=== PATIENT | male | born 1975 | race Caucasian/White ===

== ENCOUNTER 2017-10-13 18:19 | Emergency (ER) | payer OTHER ==
[~2017-10-13] VITALS: Ht 182.9 cm; Wt 98.0 kg
[2017-10-13 18:24] VITALS: BP 148/91
[2017-10-13] MEDS ORDERED: HEPATITIS B VACCINE/PF 20MCG/ML INJ IM-VACC ONE (19:30)
== END 2017-10-13 20:47 | disposition home or self-care (01) ==
LOC: ED 20:40
DX: S50.311A Abrasion of right elbow, initial encounter (principal); S50.811A Abrasion of right forearm, initial encounter; S80.212A Abrasion, left knee, initial encounter; S80.211A Abrasion, right knee, initial encounter; S60.412A Abrasion of right middle finger, initial encounter; W51.XXXA Accidental striking against or bumped into by another person, initial encounter; Y93.89 Activity, other specified; Y99.8 Other external cause status; Y92.89 Other specified places as the place of occurrence of the external cause; Z23 Encounter for immunization
CPT/HCPCS: 36415; 86706; 86803; 87806; 90471; 90746; G0475